=== PATIENT | female | born 1985 | race Caucasian/White ===

== ENCOUNTER 2022-12-17 23:05 | Inpatient (IN) | payer BC ==
[2022-12-17] MEDS ORDERED: Dextrose 5% in Water 1,000 ML IV PRN (23:36)
[2022-12-17] MEDS ORDERED: Ondansetron PF 4 MG/2 ML Vial IVP PRN (23:36)
[2022-12-17] MEDS ORDERED: Dextrose 50% Abboject 50 ML SYRINGE SLOW IVP PRN (23:36)
[2022-12-17] MEDS ORDERED: Morphine 2 MG/ML VIAL SLOW IVP PRN (23:36)
[2022-12-17] MEDS ORDERED: Glucagon 1 MG/ML KIT IM PRN (23:36)
[2022-12-17] MEDS ORDERED: Ipratropium/Albuterol 3 ML NEB NEB PRN (23:36)
[2022-12-17] MEDS ORDERED: hydrALAZINE 20 MG/ML VIAL SLOW IVP PRN (23:36)
[2022-12-17 23:44] VITALS: BMI 25.0
[2022-12-17] MEDS ORDERED: Ketorolac Tromethamine 30 MG/ML VIAL IVP SCH (23:45)
[2022-12-17] MEDS ORDERED: Sodium Chloride 0.9% 1,000 ML IV SCH (23:45)
[2022-12-17] MEDS ORDERED: Ondansetron ODT 4 MG TAB PO PRN (23:47)
[2022-12-18] MEDS: Morphine 4 MG/ML VIAL SLOW IVP PRN ×4 (00:10→09:48)
[2022-12-18] MEDS ORDERED: Dicyclomine 10 MG CAP PO SCH ×3 (00:15→21:00)
[2022-12-18] MEDS: Acetaminophen 500 MG TAB PO SCH ×5 (00:22→23:48)
[2022-12-18] MEDS: Lactated Ringer's 1,000 ML IV SCH ×4 (00:23→23:48)
[2022-12-18 05:56] LABS: #Eosinphils 0.2 thou/uL (0.0-0.7); #Monocytes 0.5 thou/uL (0.11-0.59); #Neutrophils 4.1 thou/uL (1.40-6.50); %Basophils 0.5 % (0.0-1.0); %Lymphocytes 37.8 % (21.0-51.0); %Monocytes 6.3 % (0.0-10.0); %Neutrophils 53.3 % (42.0-75.0); Hematocrit 34.2 % (36.0-47.0); Mean Corpuscular HGB CONC 32.2 g/dL (32.0-36.0); Mean Corpuscular Volume 93.2 fl (78.0-98.0); Mean Platelet Volume 11.1 fL (7.4-10.4); Platelet Count 178 10x3/uL (130-400); RBC Distribution Width 13.2 % (11.5-14.5); Red Blood Cell (RBC) Count 3.67 mill/uL (4.20-5.40); White Blood Cell (WBC) Count 7.6 10x3/uL (4.8-10.8)
[2022-12-18 06:13] LABS: INR-International Normal Ratio 1.1; PTT 31.4 sec (22.9-36.1)
[2022-12-18 06:20] LABS: Anion Gap 8 mmol/L (10-20); BUN (Urea Nitrogen) 10 mg/dL (7.0-18.7); Calc. Creatinine Clearance 115 mL/min (70-130); Calcium 8.4 mg/dL (7.8-10.44); Carbon Dioxide 25 mmol/L (22-29); Chloride 107 mmol/L (98-107); Estimated GFR 113; Glucose 72 mg/dL (70-105); Potassium 3.8 mmol/L (3.5-5.1); Sodium 136 mmol/L (136-145)
[2022-12-18] MEDS ORDERED: Meropenem 1 GM in Sodium Chloride 0.9% 100 ML IVPB SCH (08:30)
[2022-12-18] MEDS: Pantoprazole 40 MG VIAL IVP SCH (08:50)
[2022-12-18] MEDS ORDERED: Famotidine/PF 20 mg/2ml Vial SLOW IVP SCH (09:00)
[2022-12-18] MEDS ORDERED: Fentanyl 100 MCG/2 ML VIAL SLOW IVP PRN (10:49)
[2022-12-18] MEDS ORDERED: fentaNYL 50 mcg/mL 1 mL Vial SLOW IVP PRN (11:05)
[2022-12-18] MEDS: Ketorolac Tromethamine 30 MG/ML VIAL IVP SCH ×3 (12:20→23:48)
[2022-12-18] MEDS ORDERED: Bupivacaine 0.25% HCL 30 ML VIAL ONE ×2 (15:00→15:39)
[2022-12-18] MEDS ORDERED: Midazolam HCl 2 mg/2 ml Vial ONE (15:00)
[2022-12-18] MEDS ORDERED: fentaNYL 50 mcg/mL 1 mL Vial ONE (15:00)
[2022-12-18] MEDS ORDERED: Succinylcholine 200 MG/10 ml SYRINGE FS ONE (15:34)
[2022-12-18] MEDS ORDERED: Lidocaine 1% PF 5 ML VIAL ONE (15:34)
[2022-12-18] MEDS ORDERED: Dexamethasone 20 MG/5 ML VIAL ONE (15:34)
[2022-12-18] MEDS ORDERED: Glycopyrrolate 0.2 MG/ML 5 ML SYRINGE ONE (15:34)
[2022-12-18] MEDS ORDERED: Ondansetron PF 4 MG/2 ML Vial ONE (15:34)
[2022-12-18] MEDS ORDERED: PROPOFOL 200 MG/20 ML VIAL ONE (15:34)
[2022-12-18] MEDS ORDERED: EPINEPHrine 1 MG/ML AMP ONE (15:39)
[2022-12-18] MEDS ORDERED: Fentanyl 250 MCG/5 ML VIAL ONE (16:01)
[2022-12-18] MEDS ORDERED: Meperidine HCl/PF 25 MG/ML VIAL SLOW IVP PRN ×2 (17:52)
[2022-12-18] MEDS ORDERED: Promethazine HCl 25 MG/ML VIAL IM PRN (17:52)
[2022-12-18] MEDS ORDERED: HYDROmorphone 2 MG/ML VIAL SLOW IVP PRN (17:52)
[2022-12-18] MEDS ORDERED: Ondansetron HCl/PF 4 MG/2 ML Vial IVP PRN (17:52)
[2022-12-18] MEDS ORDERED: fentaNYL PF 100 MCG/2 ML SYRINGE ONE (17:58)
[2022-12-18] MEDS ORDERED: HYDROmorphone 0.5 MG/0.5 ML SYRINGE ONE ×2 (18:15→18:23)
[2022-12-18] MEDS ORDERED: Morphine Sulfate 100 MG in Dextrose 5% in Water 98 ML IV SCH (18:30)
[2022-12-18] MEDS ORDERED: diphenhydrAMINE 25 MG CAP PO PRN (18:30)
[2022-12-18] MEDS ORDERED: Naloxone HCl 0.4 mg/ml Vial IV PRN (18:30)
[2022-12-18] MEDS ORDERED: diphenhydrAMINE 50 MG/ML VIAL IM/IV PRN (18:30)
[2022-12-18] MEDS ORDERED: Meperidine HCl/PF 25 MG/ML VIAL ONE (18:37)
[2022-12-18] MEDS: Gabapentin 300 MG CAP PO SCH (21:14)
[2022-12-19 05:28] LABS: #Monocytes 0.9 thou/uL (0.11-0.59); #Neutrophils 26.1 thou/uL (1.40-6.50); %Basophils 0.1 % (0.0-1.0); %Lymphocytes 1.1 % (21.0-51.0); %Monocytes 3.2 % (0.0-10.0); Hematocrit 35.4 % (36.0-47.0); Hemoglobin 11.5 g/dL (12.0-16.0); Mean Corpuscular HGB CONC 32.5 g/dL (32.0-36.0); Mean Corpuscular Volume 92.4 fl (78.0-98.0); Mean Platelet Volume 11.6 fL (7.4-10.4); Platelet Count 183 10x3/uL (130-400); RBC Distribution Width 13.1 % (11.5-14.5); Red Blood Cell (RBC) Count 3.83 mill/uL (4.20-5.40); White Blood Cell (WBC) Count 27.5 10x3/uL (4.8-10.8)
[2022-12-19] MEDS: Ketorolac Tromethamine 30 MG/ML VIAL IVP SCH ×3 (05:30→17:28)
[2022-12-19] MEDS: Acetaminophen 500 MG TAB PO SCH (05:30)
[2022-12-19 05:52] LABS: ALT (SGPT) 8 U/L (8-55); AST (SGOT) 14 U/L (5-34); Albumin 3.6 g/dL (3.5-5.0); Alkaline Phosphatase 34 U/L (40-110); Anion Gap 13 mmol/L (10-20); BUN (Urea Nitrogen) 9 mg/dL (7.0-18.7); Bilirubin, Total 0.6 mg/dL (0.2-1.2); Calc. Creatinine Clearance 102 mL/min (70-130); Calcium 8.4 mg/dL (7.8-10.44); Carbon Dioxide 21 mmol/L (22-29); Chloride 102 mmol/L (98-107); Estimated GFR 98; Globulin 2.2 g/dL (2.4-3.5); Glucose 272 mg/dL (70-105); Potassium 4.2 mmol/L (3.5-5.1); Protein, Total 5.8 g/dL (6.0-8.3); Sodium 132 mmol/L (136-145)
[2022-12-19] MEDS: Lactated Ringer's 1,000 ML IV SCH ×3 (08:12→17:27)
[2022-12-19] MEDS: Gabapentin 300 MG CAP PO SCH ×3 (08:51→20:06)
[2022-12-19] MEDS: Pantoprazole 40 MG VIAL IVP SCH ×2 (08:52→11:19)
[2022-12-19] MEDS: Dicyclomine 10 MG CAP PO SCH ×4 (08:52→20:06)
[2022-12-19] MEDS ORDERED: HYDROcodone/Acetaminophen 10/325 mg Tablet PO PRN ×2 (10:45→10:46)
[2022-12-19] MEDS ORDERED: fentaNYL 50 mcg/mL 1 mL Vial SLOW IVP PRN (10:47)
[2022-12-20] MEDS: Ketorolac Tromethamine 30 MG/ML VIAL IVP SCH ×2 (00:20→06:58)
[2022-12-20 05:43] LABS: #Eosinphils 0.1 thou/uL (0.0-0.7); #Monocytes 1.1 thou/uL (0.11-0.59); %Basophils 0.2 % (0.0-1.0); %Eosinophils 0.4 % (0.0-10.0); %Lymphocytes 12.4 % (21.0-51.0); %Monocytes 7.8 % (0.0-10.0); %Neutrophils 78.7 % (42.0-75.0); Hematocrit 31.5 % (36.0-47.0); Mean Corpuscular HGB CONC 31.7 g/dL (32.0-36.0); Mean Corpuscular Hemoglobin 30.1 pg (27.0-31.0); Mean Corpuscular Volume 94.9 fl (78.0-98.0); Mean Platelet Volume 11.6 fL (7.4-10.4); Platelet Count 163 10x3/uL (130-400); RBC Distribution Width 13.3 % (11.5-14.5); Red Blood Cell (RBC) Count 3.32 mill/uL (4.20-5.40)
[2022-12-20 06:10] LABS: Anion Gap 10 mmol/L (10-20); BUN (Urea Nitrogen) 17 mg/dL (7.0-18.7); Calc. Creatinine Clearance 106 mL/min (70-130); Calcium 8.6 mg/dL (7.8-10.44); Carbon Dioxide 24 mmol/L (22-29); Chloride 105 mmol/L (98-107); Estimated GFR 102; Glucose 95 mg/dL (70-105); Magnesium 1.7 mg/dL (1.6-2.6); Phosphorus 2.6 mg/dL (2.3-4.7); Potassium 4.1 mmol/L (3.5-5.1); Sodium 135 mmol/L (136-145)
[2022-12-20] MEDS ORDERED: Ibuprofen 200 MG TAB PO PRN (06:47)
[2022-12-20] MEDS ORDERED: Cyclobenzaprine 10 MG TAB PO PRN (06:47)
[2022-12-20] MEDS: Dicyclomine 10 MG CAP PO SCH ×4 (08:59→20:52)
[2022-12-20] MEDS: Gabapentin 300 MG CAP PO SCH ×3 (09:00→20:52)
[2022-12-20] MEDS: traMADol HCl 50 MG TAB PO SCH ×2 (11:22→18:12)
[2022-12-20] MEDS: Acetaminophen 500 MG TAB PO SCH ×2 (11:22→18:12)
[2022-12-20] MEDS ORDERED: Polyethylene Glycol 3350 17 GM Packet PO SCH (14:32)
[2022-12-20] MEDS ORDERED: Senokot 8.6 MG TAB PO SCH (14:32)
[2022-12-20] MEDS: Senokot S 8.6-50 MG TAB PO SCH (20:52)
[2022-12-21] MEDS: Acetaminophen 500 MG TAB PO SCH ×4 (00:30→19:16)
[2022-12-21] MEDS: traMADol HCl 50 MG TAB PO SCH ×4 (00:31→19:17)
[2022-12-21] MEDS: Dicyclomine 10 MG CAP PO SCH ×3 (09:18→19:16)
[2022-12-21] MEDS: Gabapentin 300 MG CAP PO SCH ×2 (09:18→19:16)
[2022-12-21] MEDS: Senokot S 8.6-50 MG TAB PO SCH (09:19)
[2022-12-21] MEDS: Polyethylene Glycol 3350 17 GM Packet PO SCH (09:19)
[2022-12-21] MEDS: Ondansetron PF 4 MG/2 ML Vial IVP PRN ×2 (14:06→19:12)
[2022-12-21] MEDS: Promethazine HCl 25 MG/ML VIAL IM PRN (19:40)
[2022-12-21] MEDS ORDERED: Morphine 2 MG/ML VIAL SLOW IVP PRN (21:08)
[2022-12-21] MEDS ORDERED: Lactated Ringer's 1,000 ML IV SCH (21:15)
[2022-12-22] MEDS: traMADol HCl 50 MG TAB PO SCH ×4 (00:21→18:24)
[2022-12-22] MEDS: Gabapentin 300 MG CAP PO SCH ×4 (00:21→23:42)
[2022-12-22] MEDS: Senokot S 8.6-50 MG TAB PO SCH ×3 (00:21→23:43)
[2022-12-22] MEDS: Acetaminophen 500 MG TAB PO SCH ×4 (00:27→18:24)
[2022-12-22] MEDS: Dicyclomine 10 MG CAP PO SCH (00:31)
[2022-12-22 06:07] LABS: Hematocrit 33.3 % (36.0-47.0); Hemoglobin 10.7 g/dL (12.0-16.0); Mean Corpuscular HGB CONC 32.1 g/dL (32.0-36.0); Mean Corpuscular Hemoglobin 29.8 pg (27.0-31.0); Mean Corpuscular Volume 92.8 fl (78.0-98.0); Mean Platelet Volume 11.7 fL (7.4-10.4); Platelet Count 218 10x3/uL (130-400); RBC Distribution Width 13.3 % (11.5-14.5); Red Blood Cell (RBC) Count 3.59 mill/uL (4.20-5.40)
[2022-12-22 06:14] LABS: Delete Auto Diff?? YES; Manual Diff?? YES
[2022-12-22 06:30] LABS: Anion Gap 10 mmol/L (10-20); BUN (Urea Nitrogen) 12 mg/dL (7.0-18.7); Calc. Creatinine Clearance 118 mL/min (70-130); Calcium 8.8 mg/dL (7.8-10.44); Carbon Dioxide 29 mmol/L (22-29); Chloride 100 mmol/L (98-107); Estimated GFR 115; Glucose 104 mg/dL (70-105); Magnesium 1.5 mg/dL (1.6-2.6); Phosphorus 4.2 mg/dL (2.3-4.7); Potassium 4.2 mmol/L (3.5-5.1); Sodium 135 mmol/L (136-145)
[2022-12-22 06:54] LABS: Band 36 % (5-11); CellaVision Operator ID LAB.GE; Large Platelets 9.9 % (0-5); Lymphocytes 10 % (21-51); Metamyelocyte 2 % (0-0); Monocytes 12 % (0-10); Neutrophil 40 % (42-75); Platelet Adequacy Comment Platelets Normal; Polychromasia SLIGHT = 2-3 cells HPF (0-2); Total Cell Count 101
[2022-12-22] MEDS ORDERED: Magnesium 2 GM/50 ML(in water) 2 GM in Premix Bag 1 BAG IVPB SCH ×2 (08:45→11:00)
[2022-12-22] MEDS: Polyethylene Glycol 3350 17 GM Packet PO SCH ×3 (10:04→11:24)
[2022-12-22] MEDS: Escitalopram Oxalate 20 mg Tablet PO SCH (10:05)
[2022-12-22] MEDS: Nicotine 21 MG PATCH TOP SCH (10:41)
[2022-12-22] MEDS ORDERED: DEXTROAMPHETAMINE PO SCH (21:00)
[2022-12-22] MEDS ORDERED: AMPHETAMINE PO SCH (21:00)
[2022-12-22] MEDS: Promethazine HCl 25 MG/ML VIAL IM PRN (21:00)
[2022-12-23] MEDS: Acetaminophen 500 MG TAB PO SCH ×4 (01:24→20:16)
[2022-12-23] MEDS: traMADol HCl 50 MG TAB PO SCH ×4 (01:25→20:15)
[2022-12-23] MEDS: Escitalopram Oxalate 20 mg Tablet PO SCH (09:01)
[2022-12-23] MEDS: Polyethylene Glycol 3350 17 GM Packet PO SCH (09:01)
[2022-12-23] MEDS: Senokot S 8.6-50 MG TAB PO SCH (09:02)
[2022-12-23] MEDS: Gabapentin 300 MG CAP PO SCH ×2 (09:02→15:44)
[2022-12-23] MEDS: Nicotine 21 MG PATCH TOP SCH (09:07)
[2022-12-23] MEDS ORDERED: Fleet Saline Enema 133 ML BOT PR SCH (15:15)
[2022-12-23] MEDS: Promethazine HCl 25 MG/ML VIAL IM PRN (19:41)
[2022-12-23] MEDS: Dextrose 5 %-0.45 % NaCl 1,000 ML IV SCH (19:41)
[2022-12-24] MEDS: Gabapentin 300 MG CAP PO SCH ×4 (00:22→20:43)
[2022-12-24] MEDS: Senokot S 8.6-50 MG TAB PO SCH ×3 (00:22→20:43)
[2022-12-24] MEDS: Acetaminophen 500 MG TAB PO SCH ×5 (00:23→23:15)
[2022-12-24] MEDS: traMADol HCl 50 MG TAB PO SCH ×5 (00:23→23:14)
[2022-12-24] MEDS: Dextrose 5 %-0.45 % NaCl 1,000 ML IV SCH ×3 (06:33→23:23)
[2022-12-24 07:26] LABS: ALT (SGPT) 12 U/L (8-55); AST (SGOT) 12 U/L (5-34); Albumin 3.1 g/dL (3.5-5.0); Alkaline Phosphatase 38 U/L (40-110); Anion Gap 13 mmol/L (10-20); BUN (Urea Nitrogen) 14 mg/dL (7.0-18.7); Bilirubin, Total 0.4 mg/dL (0.2-1.2); Calc. Creatinine Clearance 120 mL/min (70-130); Calcium 8.5 mg/dL (7.8-10.44); Carbon Dioxide 27 mmol/L (22-29); Chloride 100 mmol/L (98-107); Estimated GFR 116; Globulin 2.4 g/dL (2.4-3.5); Glucose 93 mg/dL (70-105); Magnesium 1.6 mg/dL (1.6-2.6); Potassium 3.3 mmol/L (3.5-5.1); Protein, Total 5.5 g/dL (6.0-8.3); Sodium 137 mmol/L (136-145)
[2022-12-24] MEDS: Potassium Chloride 20 MEQ in Premix Bag 1 BAG IVPB SCH ×2 (09:50→14:57)
[2022-12-24] MEDS: Nicotine 21 MG PATCH TOP SCH (09:50)
[2022-12-24] MEDS: Bisacodyl 10 MG SUPP PR SCH ×3 (09:50→20:43)
[2022-12-24] MEDS: Escitalopram Oxalate 20 mg Tablet PO SCH (09:51)
[2022-12-24] MEDS ORDERED: MD-Gastroview 120 ML BOT ONE (10:00)
[2022-12-24] MEDS: Polyethylene Glycol 3350 17 GM Packet PO SCH (10:06)
[2022-12-24] MEDS ORDERED: Metoclopramide HCl 10 MG/2 ML VIAL IVP SCH (10:30)
[2022-12-24] MEDS: Ketorolac Tromethamine 30 MG/ML VIAL IVP SCH ×3 (12:46→23:15)
[2022-12-24] MEDS: Metoclopramide HCl 10 MG/2 ML VIAL IVP SCH ×2 (18:12→20:44)
[2022-12-24] MEDS: Promethazine HCl 25 MG/ML VIAL IM PRN (23:18)
[2022-12-25] MEDS: Acetaminophen 500 MG TAB PO SCH ×2 (05:13→12:48)
[2022-12-25] MEDS: traMADol HCl 50 MG TAB PO SCH ×2 (05:14→12:48)
[2022-12-25] MEDS: Ketorolac Tromethamine 30 MG/ML VIAL IVP SCH ×2 (05:15→12:48)
[2022-12-25] MEDS: Senokot S 8.6-50 MG TAB PO SCH (08:15)
[2022-12-25] MEDS: Polyethylene Glycol 3350 17 GM Packet PO SCH (08:15)
[2022-12-25] MEDS: Bisacodyl 10 MG SUPP PR SCH (08:15)
[2022-12-25] MEDS: Gabapentin 300 MG CAP PO SCH (08:15)
[2022-12-25] MEDS: Nicotine 21 MG PATCH TOP SCH (08:17)
[2022-12-25] MEDS: Escitalopram Oxalate 20 mg Tablet PO SCH (08:18)
[2022-12-25] MEDS ORDERED: Pantoprazole 40 MG VIAL IVP SCH (09:00)
[2022-12-25 09:27] VITALS: BP 119/78; TEMP 98
[2022-12-25] MEDS: Dextrose 5 %-0.45 % NaCl 1,000 ML IV SCH (10:29)
== END 2022-12-25 14:17 | disposition home or self-care (01) | DRG 330 ==
LOC: SURG B 23:32 → OBSVTOIN 23:36
PROVIDERS: ADMIT Specialist; ATTEND Specialist
PROC: 0DTF0ZZ Resection of Right Large Intestine, Open Approach (ICD-10-PCS; principal; 2022-12-18)
PROC: 0DJD4ZZ Inspection of Lower Intestinal Tract, Percutaneous Endoscopic Approach (ICD-10-PCS; 2022-12-18)
PROC: 3E0T3BZ Introduction of Anesthetic Agent into Peripheral Nerves and Plexi, Percutaneous Approach (ICD-10-PCS; 2022-12-18)
DX: K56.2 Volvulus (principal); K91.89 Other postprocedural complications and disorders of digestive system; Z79.899 Other long term (current) drug therapy; F17.290 Nicotine dependence, other tobacco product, uncomplicated; Z90.89 Acquired absence of other organs; Z98.890 Other specified postprocedural states; E66.01 Morbid (severe) obesity due to excess calories; K56.7 Ileus, unspecified; Z53.31 Laparoscopic surgical procedure converted to open procedure; Z98.84 Bariatric surgery status; Z68.25 Body mass index [BMI] 25.0-25.9, adult
CPT/HCPCS: 36415; 36416; 74018; 74022; 74250; 80048; 80053; 83735; 84100; 85025; 85610; 85730; 88307; C9113; J0171; J1100; J1170; J1650; J1885; J2175; J2250; J2270; J2272; J2405; J2550; J2704; J2765; J3010; J3475; J3480; J7042; J7120; Q0162; Q9963; S0020